=== PATIENT | male | born 1980 | race Caucasian/White ===

== ENCOUNTER 2017-03-05 07:10 | Emergency (ER) | payer BC, OTHER ==
[2017-03-05 07:17] VITALS: BP 134/94; PULSE 94; TEMP 98.2; BMI 29.1
--- NOTE | 2017-03-05 07:23 | PDOC ---
History of Present Illness - General Chief Complaint: Pain Stated Complaint: BACK PAIN X 3 DAYS Time Seen by Provider: 03/05/17 07:14 - History of Present Illness Initial Comments: 03/05/17 07:30 pt presents to the ED complaining of a two day history of lower back pain in a band like distribution in his lower back. Pain is constant, worsened by walking or by bending to touch his toes, moderate in severity and not relieved by ibuprofen. Denies trauma, fevers, weakness or numbness of his legs or feet. Denies problems with bowel or bladder control. Has a prior history of similar pain, but this pain is more severe. Patient presents to the ED today because he works " lifting heavy things" and he was unable to go to work today. Denies urinary complaints. Has LS xray from 02/10 that shows mild degenerative changes and healed transverse process fracture of L 2. 03/05/17 07:33 Severity: moderate Modifying Factors: improves with: movement Associated Symptoms: reports: denies symptoms Past History - Past Medical History Allergies/Adverse Reactions: Allergies Allergy/AdvReac Type Severity Reaction Status Date / Time Penicillins Allergy Verified 03/05/17 07:11 Home Medications: Ambulatory Orders NK [No Known Home Medication] 10/27/13 COPD: No Other medical history: DENIES - Suicide/Smoking/Psychosocial Hx Smoking History: Former smoker Have you smoked in the past 12 months: No Number of Cigarettes Smoked Daily: 0 If you are a former smoker, when did you quit?: 10 YEARS Cigars Per Day: 1 Information on smoking cessation initiated: No 'Breaking Loose' booklet given: 10/27/13 Hx Alcohol Use: Yes (OCCAS) Drug/Substance Use Hx: No Substance Use Type: None *Physical Exam - Vital Signs Last Vital Signs Temp Pulse Resp BP Pulse Ox 98.2 F 94 H 18 134/94 98 03/05/17 07:12 03/05/17 07:12 03/05/17 07:12 03/05/17 07:12 03/05/17 07:12 - Physical Exam General Appearance: Yes: Nourished, Appropriately Dressed. No: Apparent Distress, Disheveled, Mild Distress, Moderate Distress, Severe Distress, Alcohol on Breath, Intoxicated, Cachetic, Obese, Thin, Other HEENT: positive: Normal ENT Inspection Neck: positive: Supple Respiratory/Chest: positive: Lungs Clear, Normal Breath Sounds Cardiovascular: positive: Regular Rhythm, Regular Rate, S1, S2 Gastrointestinal/Abdominal: positive: Normal Bowel Sounds, Flat, Soft Musculoskeletal: negative: Normal Inspection, CVA Tenderness, CVA Tenderness (R) , CVA Tenderness (L), Decreased Range of Motion, Muscle Spasm, Vertebral Tenderness (mild lumbar paraspinal tenderness in a band like distribution in the lower back), Other Integumentary: positive: Normal Color, Dry, Warm Neurologic: positive: Fully Oriented, Alert, Normal Mood/Affect, Motor Strength /5 Medical Decision Making - Medical Decision Making 03/05/17 07:35 Pt presents to the ED complaining of atraumatic lower back pain. No red flags to suggest malignancy or cord compression. Will treat with toradol, discharge home with prescription for muscle relaxant. *DC/Admit/Observation/Transfer Diagnosis at time of Disposition: Back pain Qualifiers: Back pain location: low back pain Chronicity: acute Back pain laterality: bilateral Sciatica presence: without sciatica Qualified Code(s): M54.5 - Low back pain - Discharge Dispostion Disposition: HOME Condition at time of disposition: Good Admit: No - Referrals Referrals: Zhao Avelra MD [Primary Care Provider] - - Patient Instructions Printed Discharge Instructions: DI for Low Back Pain Additional Instructions: return to the ED for severe pain, numbness and tingling in your legs, loss of bowel or bladder control. Follow up with Dr. Avelar this week. you can take up to 4 or the over the counter Ibuprofen pills every 8 hours. - Post Discharge Activity Forms/Work/School Notes: Back to Work
[2017-03-05] MEDS ORDERED: KETOROLAC TROMETHAMINE 60 MG/2 ML VIAL IM ONE (07:29)
[2017-03-05] MEDS ORDERED: KETOROLAC TROMETHAMINE 60 MG/2 ML VIAL ONE (07:30)
== END 2017-03-05 07:44 | disposition home or self-care (01) ==
LOC: FER 07:10
PROC: 3E0233Z Introduction of Anti-inflammatory into Muscle, Percutaneous Approach (ICD-10-PCS; principal; 2017-03-05)
DX: M54.5 Low back pain (principal); Z87.891 Personal history of nicotine dependence; G89.29 Other chronic pain
CPT/HCPCS: 99281-25

== ENCOUNTER 2021-10-11 17:55 | Emergency (ER) | payer BC, OTHER ==
[2021-10-11] MEDS ORDERED: SODIUM CHLORIDE 0.9% 500 ML INFUS.BAG IV ONE (18:29)
[2021-10-11 18:39] LABS: HEMATOCRIT 40.9 % (35.4-49); HEMOGLOBIN 14.6 G/dL (11.7-16.9); MCH 31.2 pg (25.7-33.7); MCHC 35.7 g/dl (32.0-35.9); MEAN CELL VOLUME 87.2 fl (80-96); PLATELET COUNT 318.6 10^3/uL (134-434); RBC 4.69 10^6/uL (4.00-5.60); RDW 13.9 % (11.9-15.9)
[2021-10-11 18:48] LABS: INR 1.17 (0.83-1.09); PROTHROMBIN TIME (PATIENT) 13.5 SEC (9.7-13.0)
[2021-10-11 18:54] LABS: ALBUMIN 3.7 g/dl (3.4-5.0); BILIRUBIN,TOTAL 0.9 mg/dl (0.2-1); CALCIUM 9.1 mg/dl (8.5-10); TOT PROT 7.6 g/dl (6.4-8.2)
[2021-10-11 19:03] VITALS: BP 133/83; PULSE 96; RESP 18; TEMP 98.3; BMI 28.5
[2021-10-11 19:21] LABS: PLATELET ESTIMATE ADEQUATE
[2021-10-11] MEDS ORDERED: CIPROFLOXACIN 500 MG TABLET (RESTRICTED TO ID) PO ONE (20:01)
[2021-10-11] MEDS ORDERED: CIPROFLOXACIN 250 MG TABLET (RESTRICTED TO ID) PO ONE (20:04)
[2021-10-11] MEDS ORDERED: CIPROFLOXACIN 400 MG/D5W 400 MG/200 ML IVPB IVPB ONE ×2 (20:06→20:07)
[2021-10-11] MEDS ORDERED: SODIUM CHLORIDE 1,000 ML IV ONE (20:08)
== END 2021-10-11 21:47 | disposition home or self-care (01) ==
LOC: FER 17:55
PROC: 3E03329 Introduction of Other Anti-infective into Peripheral Vein, Percutaneous Approach (ICD-10-PCS; principal; 2021-10-11)
PROC: 3E0337Z Introduction of Electrolytic and Water Balance Substance into Peripheral Vein, Percutaneous Approach (ICD-10-PCS; 2021-10-11)
DX: R19.7 Diarrhea, unspecified (principal)
CPT/HCPCS: 36415; 80053; 85027; 85610; 86850; 86900; 86901; 99284-25